=== PATIENT | female | born 2000 | race Caucasian/White ===

== ENCOUNTER 2020-12-29 15:24 | Emergency (ER) | payer OTHER, SELFPAY ==
[2020-12-29 15:36] VITALS: BP 139/69; PULSE 93; RESP 16; TEMP 37; O2SAT 99
--- NOTE | 2020-12-29 15:43 | ED.FEMALEGU ---
HPI - Female Genitourinary General Chief complaint: Vaginal Bleeding Stated complaint: spotting/cramps Time Seen by Provider: 12/29/20 15:45 Source: patient and RN notes reviewed Mode of arrival: ambulatory Limitations: no limitations History of Present Illness HPI Narrative: 20-year-old female who is 10 weeks presents with concern for lower abdominal cramping and spotting. Reports she is spotting enough to use 1 pantiliner throughout the day. She reports cramping is intermittent. Reports she also had cramping and spotting when she went to the ER several weeks ago where her was confirmed at that time. She denies any abdominal pain, fever. Reports she has not seen an [facility]IST yet, has an appointment on Sunday. Reports in the emergency room her was confirmed to be uterine with an ultrasound. MD elicited complaint: possible miscarriage Related Data Home Medications Medication Instructions Recorded Confirmed vit no.[id number] tablet 12/29/20 [ Vitamin] Allergies Allergy/AdvReac Type Severity Reaction Status Date / Time No Known Allergies Allergy Unverified 12/11/17 22:37 Review of Systems Review of Systems: Narrative: CONSTITUTIONAL: Denies malaise, chills, sweats, or fever. CARDIOVASCULAR: Denies chest pain, palpitations, or edema. RESPIRATORY: Denies cough or dyspnea. GASTROINTESTINAL: Denies abdominal pain, nausea, vomiting GENITOURINARY: Reports vaginal spotting and lower abdominal cramping MUSCULOSKELETAL: Denies back pain or myalgia. All systems reviewed & are unremarkable except as noted in HPI and below PMFSH Comments At time of signature, agree with nursing past medical, surgical, social and family history. There is no relevant family history pertinent to the presenting complaint Exam Narrative: Exam Narrative: GENERAL: Well-appearing, well-nourished, and in no acute distress. HEAD: Normocephalic. EYES: PERRLA, conjunctivae clear. NECK: Supple. No lymphadenopathy CHEST: Clear to auscultation. No respiratory distress. HEART: Regular rate and rhythm. ABDOMEN: Soft, nontender upon palpation, nondistended, normal active bowel sounds, no palpable or pulsatile masses, no guarding. SKIN: Warm, dry, no rash. NEURO: Alert and oriented x3. PSYCH: Normal mood and affect Course Course Emergency Course: Patient is aware of, understands and agrees to treatment plan. Anticipatory guidance given. Patient agrees to follow-up as directed and is aware of reasons to seek care at the emergency department. Portions of this record may have been created with voice recognition software Vital Signs Vital signs: Vital Signs Temperature 98.6 F 12/29/20 15:36 Pulse Rate 93 12/29/20 15:36 Respiratory Rate 16 12/29/20 15:36 Blood Pressure 139/69 12/29/20 15:36 Pulse Oximetry 99 12/29/20 15:36 Temperature 98.6 F 12/29/20 15:36 Pulse Rate 93 12/29/20 15:36 Respiratory Rate 16 12/29/20 15:36 Blood Pressure 139/69 12/29/20 15:36 Pulse Oximetry 99 12/29/20 15:36 Reviewed. MDM - Female Genitourinary MDM Narrative Medical decision making narrative: Exam findings and imaging show no acute concerns or changes; patient is non-toxic appearing and is in no distress. Patient is appropriate for outpatient treatment and follow-up. Critical Care Time Critical Care Time Critical Care Time: No Discharge Plan Discharge Clinical Impression: Vaginal bleeding during Patient Disposition: Home, Self-Care Condition: Stable Instructions: General Patient Instructions Additional Instructions: Confirmation of or miscarriage can be done at your primary care provider or in the emergency room. You may wait for your appointment on Sunday to confirm or miscarriage or you may go to the emergency room. If you decide to wait till your appointment on Sunday monitor the amount of bleeding you are having. If you are [place]
== END 2020-12-29 16:00 | disposition home or self-care (01) ==
PROVIDERS: Emergency Provider Nurse Practitioner
DX: O20.9 Hemorrhage in early pregnancy, unspecified (principal)
CPT/HCPCS: 99211; G0463